=== PATIENT | male | born 1970 | race Caucasian/White ===

== ENCOUNTER 2022-01-21 14:06 | Inpatient (IN) | payer OTHER, MEDICAID ==
[~2022-01-21] VITALS: Ht 167.6 cm; Wt 77.1 kg
--- NOTE | 2022-01-21 14:06 | NUR ---
TRAMAINE ALS TO ER BED 7
[2022-01-21 14:08] VITALS: BP 123/74
--- NOTE | 2022-01-21 14:30 | NUR ---
51YO MALE PT BIBA FROM HOME DUE TO SYNCOPE . FAMILY STATES "HEARING A FALL" AND FINDING PT ON BATHROOM FLOOR, NOTE PT WAS NON VERBAL FOR ABOUT 15MIN. PER FAMILY , PT STATED "NOT FEELING WELL" YESTERDAY AFTERNON AND DIDNT WANT TO GET OUT OF BED. 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 FAMILY EXPRESSED CONCERN DUE TO FAMILY HX OF WIDOWMAKER CORNEJO. UPON ARRIVAL- PT AAOX3 , MILD CONFUSION W/ DELAYED CLEAR SPEECH. PT W/ HX OF STROKE(2017), MILD MEMORY LOSS . 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 DENIES N/V/D, CHEST PAIN, SOB , FEVER OR CHILLS. +FAMILY SICK AT HOME. HOB RAISED, BED AT LOWEST POSITION, BED RAILS UPX2. ON TUBING TESTER. HX: HLD, STROKE(2017), HYPERTHYROIDISM. NKA
[2022-01-21] MEDS ORDERED: DEXTROSE ORAL 15 GM TUBE PO ONE (14:40)
[2022-01-21] MEDS ORDERED: NACL 0.9% 1,000 ML IV SCH (14:40)
--- NOTE | 2022-01-21 14:45 | NUR ---
PT TAKEN TO CT VIA MELANIE
--- NOTE | 2022-01-21 14:55 | NUR ---
PT BROUGHT BACK FROM CT
[2022-01-21] MEDS ORDERED: levETIRAcetam 1,000 MG in NACL 0.9% 100 ML IV ONE (15:00)
[2022-01-21] MEDS ORDERED: LORazepam 2 MG/ML VIAL IVP ONE (15:00)
[2022-01-21] MEDS ORDERED: INTUBATION KIT MC ONE ×2 (15:01→15:05)
[2022-01-21] MEDS ORDERED: PROPOFOL 200 MG/20 ML VIAL IV ONE ×2 (15:04→15:05)
[2022-01-21] MEDS ORDERED: ROCURONIUM 50 MG/5 ML VIAL IV ONE (15:05)
[2022-01-21 15:45] LABS: BASOPHILS % (AUTO) 0.4 % (0.0-2.0); EOSINOPHILS # (AUTO) 0.1 K/uL (0-0.4); EOSINOPHILS % (AUTO) 1.5 % (0.0-4.0); HEMATOCRIT 40.5 % (36-52); HEMOGLOBIN 14.3 g/dL (12.0-18.0); LYMPHOCYTES # (AUTO) 0.8 K/uL (2.0-11.5); LYMPHOCYTES % (AUTO) 9.6 % (20.5-51.1); MEAN CORPUSCULAR HEMOGLOBIN 31 pg (27-31); MEAN CORPUSCULAR HGB CONC 35 g/dL (33-37); MEAN CORPUSCULAR VOLUME 87.3 fL (80-94); MONOCYTES # (AUTO) 1.2 K/uL (0.8-1.0); MONOCYTES % (AUTO) 13.5 % (1.7-9.3); NEUTROPHILS # (AUTO) 6.4 K/uL (1.8-7.7); PLATELET COUNT (AUTO) 156 K/uL (140-450); RED BLOOD CELL COUNT(AUTO) 4.64 MIL/uL (4.20-6.10); RED CELL DISTRIBUTION WIDTH 12.9 % (11.6-13.7); WHITE BLOOD COUNT (AUTO) 8.5 K/uL (4.8-10.8)
[2022-01-21 16:07] LABS: PROTHROMBIN TIME 11.6 secs (10.8-13.4)
[2022-01-21 16:21] LABS: ALBUMIN 3.3 g/dL (3.4-5.0); ANION GAP 14.6 (8-16); ASPARTATE AMINOTRANSFERASE 28 U/L (15-37); CARBON DIOXIDE 27.5 mmol/L (21-32); CHLORIDE 96 mmol/L (98-107); CREATININE 1.5 mg/dL (0.6-1.3); GFR ARICAN-AMERICAN 64 mL/min (>90); GLUCOSE 98 mg/dL (74-106); POTASSIUM 3.1 mmol/L (3.5-5.1); SODIUM SERUM 135 mmol/L (136-145); TOTAL BILIRUBIN 1.3 mg/dL (0.0-1.0); UREA NITROGEN, BLOOD 11 mg/dL (7-18)
[2022-01-21 16:22] LABS: APPEARANCE,URINE CLEAR (CLEAR); BILIRUBIN,URINE NEGATIVE (NEGATIVE); BLOOD, URINE 2+ (NEGATIVE); COLOR,URINE YELLOW (YELLOW); LEUKOCYTE ESTERASE ,URINE NEGATIVE (NEGATIVE); NITRITE, URINE NEGATIVE (NEGATIVE); UGLUCOSE NEGATIVE (NEGATIVE)
--- NOTE | 2022-01-21 16:33 | NUR ---
mom updated on pt status
[2022-01-21] MEDS ORDERED: NACL 0.9% 1,000 ML IV ONE ×2 (16:40→16:45)
[2022-01-21] MEDS ORDERED: ACETAMINOPHEN EXTRA STRENGTH 500 MG TAB PO ONE (16:55)
[2022-01-21] MEDS ORDERED: cefTRIAXone 1,000 MG VIAL ONE (17:51)
[2022-01-21] MEDS ORDERED: CLOP75TA55 PO (18:23)
[2022-01-21] MEDS ORDERED: LEVO0.0712 PO (18:23)
[2022-01-21] MEDS ORDERED: LEVE500T18 PO (18:37)
[2022-01-21] MEDS ORDERED: HYDR-3926 PO (18:37)
[2022-01-21] MEDS ORDERED: ASPI-1205 PO (18:37)
[2022-01-21] MEDS ORDERED: ATOR40TA40 PO (18:37)
[2022-01-21] MEDS ORDERED: LISI10TA30 PO (18:37)
[2022-01-21] MEDS ORDERED: HYDR25TA32 PO (18:37)
[2022-01-21] MEDS ORDERED: IBUPROFEN 600 MG TAB PO PRN (19:15)
--- NOTE | 2022-01-21 19:30 | NUR ---
REPORT GIVEN TO JOÃO CLEMENTE. TRANSFER OF CARE AT THIS TIME
[2022-01-21] MEDS ORDERED: DEXAMETHASONE 4 MG/ML VIAL IVP ONE (19:35)
--- NOTE | 2022-01-21 19:48 | NUR ---
PT IS AT REST WITH HOB ELEVATED. ON BEDSIDE MONITOR. A&OX4. SKIN INTACT RESP EVEN AND UNLABORED. PT IS COVID POSITIVE. IS ADMITED TO TELE AND CURRENTLY HOLDING IN ER. PENDING BED ASSIG. PT DENIES CP SOB OR PAIN
--- NOTE | 2022-01-21 21:42 | NUR ---
PT IS RESTING AT THIS TIME. DENIES PAIN CP OR SOB. RESP EVEN AND UNLABORED. ON BEDSIDE QC SCIENTIST.
--- NOTE | 2022-01-22 01:34 | NUR ---
PT IS ASLEEP. RESP EVEN AND UNLABORED. PT IS ON BEDSIDE MONITOR. SPO2 98% RA. HOB ELEVATED. BED AT LOWEST POSITION SIDE RAILS UP X2
--- NOTE | 2022-01-22 07:26 | NUR ---
TEXTED DR JRAA FOR DIET ORDERS.
--- NOTE | 2022-01-22 08:53 | NUR ---
SPOKE WITH THE PT MOTHER RITA [phone]. CALL HER WITH ANY NEW UPDATES.
--- NOTE | 2022-01-22 09:51 | NUR ---
PT IS HAVING BREAKFAST.
--- NOTE | 2022-01-22 10:53 | NUR ---
PATIENT TRNASPORTED TO BED 1 VIA [facility].
--- NOTE | 2022-01-22 14:47 | NUR ---
NOTIFIED DR JARA NO ADMIT ORDERS PLACED SINCE ADMISSION. STATED SHE WILL PLACE ORDERS.
[2022-01-22] MEDS ORDERED: ONDANSETRON 4 MG/2 ML VIAL IVP PRN (14:50)
[2022-01-22] MEDS ORDERED: ACETAMINOPHEN 325 MG TAB PO PRN (14:50)
[2022-01-22] MEDS ORDERED: HYDROcodone/APAP 7.5/325 MG 1 TAB PO PRN (14:50)
[2022-01-22] MEDS ORDERED: MECLIZINE 25 MG TAB PO PRN (14:55)
[2022-01-22] MEDS ORDERED: POTASSIUM CHLORIDE 10 MEQ TABER PO PRN (14:55)
[2022-01-22] MEDS ORDERED: MAG SULF 2000 MG/WATER PREMIX 50 ML IV PRN (14:55)
[2022-01-22] MEDS: NACL 0.9% 1,000 ML IV SCH (15:21)
[2022-01-22 16:11] LABS: ANION GAP 14.3 (8-16); CARBON DIOXIDE 25.2 mmol/L (21-32); CREATININE 1.2 mg/dL (0.6-1.3); POTASSIUM 3.5 mmol/L (3.5-5.1)
[2022-01-22 16:15] LABS: AMYLASE 28 U/L (25-115); HDL CHOLESTEROL 41 mg/dL (40-60); LDL (CALC) 31 mg/dL (60-100); LIPASE 149 U/L (73-393); MAGNESIUM 1.5 mg/dL (1.8-2.4); PHOSPHORUS 1.2 mg/dL (2.5-4.9); THYROID STIMULATING HORMONE < 0.01 uIU/mL (0.34-3.74); TRIGLYCERIDES 57 mg/dL (30-150)
[2022-01-22] MEDS ORDERED: cefTRIAXone 1,000 MG VIAL ONE (17:51)
[2022-01-22 19:11] LABS: BASOPHILS % (AUTO) 0.1 % (0.0-2.0); HEMATOCRIT 38.3 % (36-52); HEMOGLOBIN 13.2 g/dL (12.0-18.0); LYMPHOCYTES # (AUTO) 0.5 K/uL (2.0-11.5); MEAN CORPUSCULAR HEMOGLOBIN 30 pg (27-31); MEAN CORPUSCULAR HGB CONC 35 g/dL (33-37); MEAN CORPUSCULAR VOLUME 87.9 fL (80-94); MONOCYTES # (AUTO) 0.7 K/uL (0.8-1.0); MONOCYTES % (AUTO) 3.9 % (1.7-9.3); NEUTROPHILS # (AUTO) 16.1 K/uL (1.8-7.7); PLATELET COUNT (AUTO) 160 K/uL (140-450); RED BLOOD CELL COUNT(AUTO) 4.36 MIL/uL (4.20-6.10); RED CELL DISTRIBUTION WIDTH 12.8 % (11.6-13.7); WHITE BLOOD COUNT (AUTO) 17.3 K/uL (4.8-10.8)
--- NOTE | 2022-01-22 19:21 | NUR ---
GAVE REPORT TO MICHAEL ABDALLA.
--- NOTE | 2022-01-22 19:25 | NUR ---
Report given to LIANNE Hansen and endorse care of patient.
[2022-01-22] MEDS ORDERED: NON-FORMULARY ITEM (Atorvastatin Calcium 1 TAB) PO SCH (21:00)
[2022-01-22] MEDS: ATORVASTATIN 20 MG TAB PO SCH (21:16)
[2022-01-22] MEDS: levETIRAcetam 500 MG TAB PO SCH (21:17)
[2022-01-22] MEDS: DOCUSATE SODIUM 100 MG GELCAP PO SCH (21:17)
--- NOTE | 2022-01-22 21:47 | NUR ---
Patient will be admitted to care of Dr. Perrin. Admited to TELE. Will go to room 117. Belongings list completed. Report to LIANNE Peralta.
[2022-01-22 21:50] VITALS: BP 136/87
--- NOTE | 2022-01-22 21:50 | NUR ---
RECEIVED REPORT FROM ER NURSE VIKASH. PATIENT IS A&O X4. PATIENT IS ON ROOM AIR, BREATHING IS NORMAL WITH SYMMETRICAL RISE AND FALL OF CHEST. IV IS A 20G LAC, AND A 20G RAC; RUNNING NS 100 IN LAC. PATIENT IS ABLE TO AMBULATE INDEPENDENTLY. PATIENT'S VITALS ARE: BP 136/87, HR 78, O2 98, RR 18, TEMP 96.7. PATIENT STATES NO ISSUES USING THE RESTROOM. BED IS IN LOWEST POSITION, WHEELS LOCKED, CALL LIGHT IN PLACE. WILL CONTINUE TO OBSERVE PATIENT.
--- NOTE | 2022-01-22 22:00 | NUR ---
PT TAKEN TO TELE ROOM 117. ENDORSED TO LIANNE MONTEMAYOR.
[2022-01-22] MEDS: HYDROCORTISONE 10 MG TAB PO SCH (23:19)
[2022-01-23] VITALS: BP 119/76
--- NOTE | 2022-01-23 01:00 | NUR ---
HAD OBTAINED 0000 VITALS FROM PATIENT. VITALS WERE: BP 119/76, HR 76, O2 98, TEMP 96.7. PATIENT IS LYING SUPINE IN BED TRYING TO GO TO SLEEP. BREATHING IS NORMAL WITH SYMMETRICAL RISE AND FALL OF CHEST. WILL CONTINUE TO OBSERVE PATIENT. DR BECERRA CALLED TO CHECK UP ON THE PATIENT AT 0050. PHYSICIAN ASKED IF PATIENT WAS ALERT, IF HE COULD USE THE BATHROOM, IF HE HAD ANY FEVER, HOW HIS O2 WAS, AND IF HE HAD ANY IV. I TOLD THE DOCTOR THE PATIENT WAS A&O X4; HE WAS FULLY AMBULATORY, WALKING AROUND THE ROOM AND ABLE TO USE THE BATHROOM; THERE WAS NO FEVER; O2 WAS 98 ON ROOM AIR; AND IV WAS ON R AND L AC, WITH LAC RUNNING NS AT 100. DOCTOR STATED THAT WAS GOOD, HE'LL CHECK UP ON THE PATIENT IN THE MORNING.
[2022-01-23] MEDS: NACL 0.9% 1,000 ML IV SCH ×3 (01:41→20:58)
[2022-01-23 04:00] VITALS: BP 126/75
--- NOTE | 2022-01-23 04:00 | NUR ---
0400 VITALS WERE: BP 126/75, HR 76, O2 98, RR 18, TEMP 98.3. PATIENT'S BREATHING WAS NORMAL WITH SYMMETRICAL RISE AND FALL OF CHEST. WILL CONTINUE TO OBSERVE PATIENT.
[2022-01-23] MEDS: LEVOTHYROXINE 0.075 MG TAB PO SCH (05:45)
--- NOTE | 2022-01-23 06:30 | NUR ---
ADMINISTERED 0600 THYROID MEDICATION TO PATIENT. PATIENT TOLERATED WELL. ALSO HUNG NEW IV BAG FOR PATIENT. IV RUNNING NS AT 100. PATIENT WAS WONDERING AROUND THE ROOM, ASKED PATIENT IF EVERYTHING IS OKAY. PATIENT STATED YES, BUT KEPT PLAYING WITH HIS IV. I TOLD HIM HE NEEDED TO LEAVE HIS IV ALONE, HE SAID OKAY, BUT CONTINUED TO PLAY WITH THE CORD BY WRAPPING IT AROUND HIS ARM. PATIENT WAS STILL A&O X4; KNOWING HIS NAME, , WHERE HE WAS, THE DAY, AND WHY HE WAS HERE. WILL CONTINUE TO OBSERVE PATIENT.
--- NOTE | 2022-01-23 07:00 | NUR ---
PATIENT CALLED ME INTO THE ROOM AND STATED THAT HE DIDN'T THINK HIS IV WAS WORKING. I ASKED HIM WHY HE THOUGHT THAT. HE HELD UP THE LINE AND SAID THERE WAS NOTHING IN IT. I SHOWED HIM THE PUMP AND THAT IT WAS OPERATING WITHOUT ANY ISSUES AND EXPLAINED TO HIM THAT THE FLUID IS CLEAR AND FLOWING CONSTANTLY SO HE WOULDN'T BE ABLE TO SEE IT. PATIENT SAID OKAY. PATIENT'S BREATHING WAS NORMAL WITH SYMMETRICAL RISE AND FALL OF CHEST. WILL ENDORSE CARE TO DAY SHIFT.
--- NOTE | 2022-01-23 07:30 | NUR ---
ENDORSED TO DAY SHIFT NURSE SALEEM FOR CONTINUITY OF CARE. PATIENT IS STABLE.
[2022-01-23 08:00] VITALS: BP 132/77
[2022-01-23 08:40] LABS: BASOPHILS % (AUTO) 0.1 % (0.0-2.0); HEMATOCRIT 36.6 % (36-52); HEMOGLOBIN 12.7 g/dL (12.0-18.0); LYMPHOCYTES # (AUTO) 0.7 K/uL (2.0-11.5); LYMPHOCYTES % (AUTO) 2.4 % (20.5-51.1); MEAN CORPUSCULAR HEMOGLOBIN 31 pg (27-31); MEAN CORPUSCULAR HGB CONC 35 g/dL (33-37); MEAN CORPUSCULAR VOLUME 87.7 fL (80-94); MONOCYTES # (AUTO) 1.2 K/uL (0.8-1.0); MONOCYTES % (AUTO) 4.5 % (1.7-9.3); NEUTROPHILS # (AUTO) 25.2 K/uL (1.8-7.7); PLATELET COUNT (AUTO) 155 K/uL (140-450); RED BLOOD CELL COUNT(AUTO) 4.17 MIL/uL (4.20-6.10)
[2022-01-23 08:41] LABS: WHITE BLOOD COUNT (AUTO) 27.1 K/uL (4.8-10.8)
[2022-01-23 08:50] LABS: ANION GAP 12.6 (8-16); CARBON DIOXIDE 26.2 mmol/L (21-32); POTASSIUM 3.8 mmol/L (3.5-5.1)
[2022-01-23 08:58] LABS: MAGNESIUM 1.4 mg/dL (1.8-2.4); PHOSPHORUS 2.8 mg/dL (2.5-4.9)
[2022-01-23] MEDS ORDERED: AZITHROMYCIN 250 MG TAB PO SCH (09:00)
[2022-01-23] MEDS: PANTOPRAZOLE 40 MG INJ VIAL IVP SCH (09:06)
[2022-01-23] MEDS: ASPIRIN 325 MG TAB PO SCH (09:06)
[2022-01-23] MEDS: DOCUSATE SODIUM 100 MG GELCAP PO SCH ×2 (09:07→20:56)
[2022-01-23] MEDS: lisinopriL 10 MG TAB PO SCH (09:19)
[2022-01-23] MEDS: CLOPIDOGREL 75 MG TAB PO SCH (09:21)
[2022-01-23] MEDS: HYDROCORTISONE 10 MG TAB PO SCH ×2 (09:21→20:56)
[2022-01-23] MEDS: hydroCHLOROthiazide 25 MG TAB PO SCH (09:21)
[2022-01-23 12:00] VITALS: BP 120/68
--- NOTE | 2022-01-23 15:02 | NUR ---
PATIENT HAS BEEN SCREENED AND CATEGORIZED LOW NUTRITION RISK. PATIENT WILL BE SEEN WITHIN 7 DAYS OF ADMISSION. 01/28/[address] Addendum: 01/23/22 at [address] REFERRAL RECEIVED NOT APPLICABLE; NO UNINTENTIONAL WEIGHT LOSS REPORTED BY PT. PT WITH A GOOD APPETITE AND PO INTAKE. ADRYAN MANCIA RD
--- NOTE | 2022-01-23 15:07 | NUR ---
DC PLANNING SW MET WITH PT AT BEDSIDE TO COMPLETE ASSESSMENT. PT RESIDES AT HOME WITH HIS MOTHER AT THE ADDRESS LISTED ON FILE. PT IDENTIFIED RITA KOLHER, MOTHER, EMERGENCY CONTACT AND MDM. PT DENIES AD IN PLACE AND DECLINED AD OFFERED BY SW . PT REPORTS LAST MEETING WITH DR. LÓPEZ, THREE MONTHS AGO. PT REPORTS MEETING WITH PCP EVERY THREE MONTHS. PT REPORTS MEDICATION COMPLIANCE AND DENIES BARRIERS IN ACCESS TO MEDICATIONS. PT REPORTS RECEIVING MEDICATION FROM [facility] ON [address] IN [place] , WHEN NEEDED. PT REPORTS BEING INDEPENDENT IN ALL ACTIVITIES AND DENIES USE OF DME. PT COMPLETES ALL ADLS INDEPENDENTLY. PT DENIES MH/SHEA HX. . PT DENIES HX OF DIABETES, DIALYSIS, HH, SNF PLACEMENT. PT REPORTS DC PLAN IS TO RETURN HOME WITH MOTHER PROVIDING TRANSPORTATION WHEN MEDICALLY STABLE. SW INQUIRED ON RESOURCES NEEDED, PT DECLINED. Addendum: 01/23/22 at 1508 by Jennifer RICHARDSON Amended: Links added.
[2022-01-23 16:00] VITALS: BP 130/70
--- NOTE | 2022-01-23 19:56 | NUR ---
GET THE REPORT FROM MORNING NURSE SALEEM, PATIENT IS LYING ON BED, PATIENT IS ALERT ORIENTED X4, ALL FALL PRECAUTION MEASURE ARE IN PLACE, CALL LIGHT IS WITHIN THE REACH, WILL CONTINUE TO MONITOR PATIENT.
[2022-01-23 20:00] VITALS: BP 138/95
[2022-01-23] MEDS: levETIRAcetam 500 MG TAB PO SCH (20:57)
[2022-01-23] MEDS: ATORVASTATIN 20 MG TAB PO SCH (20:57)
--- NOTE | 2022-01-23 21:15 | NUR ---
PATIENT IS LYING ON BED, NO ANY COMPLAIN OF PAIN OR SHORTNESS OF BREATH AT THIS TIME,VITAL SIGN IS WITHIN THE REACH, ALL SCHEDULE MEDICATION IS GIVEN PER DOCTOR ORDER, ALL SEIZURE PRECAUTION ARE IN PLACE, CALL LIGHT IS WITHIN THE REACH, WILL CONTINUE TO MONITOR PATIENT.
[2022-01-24] VITALS: BP 132/90
--- NOTE | 2022-01-24 00:21 | NUR ---
PATIENT IS LYING ON BED, NO ANY COMPLAIN OF PAIN OR SHORTNESS OF BREATH AT THIS TIME, VITAL SIGN IS WITHIN THE NORMAL RANGE, CALL LIGHT IS WITHIN THE REACH, WILL CONTINUE TO MONITOR PATIENT.
[2022-01-24 04:00] VITALS: BP 126/75
--- NOTE | 2022-01-24 04:16 | NUR ---
NO ANY COMPLAIN OF PAIN OR SHORTNESS OF BREATH AT THIS TIME, VITAL SIGN IS WITHIN THE NORMAL RANGE, PATIENT IS LYING ON BED, CALL LIGHT IS WITHIN THE REACH, WILL CONTINUE TO MONITOR PATIENT.
[2022-01-24] MEDS: NACL 0.9% 1,000 ML IV SCH (05:30)
[2022-01-24] MEDS: LEVOTHYROXINE 0.075 MG TAB PO SCH (06:08)
--- NOTE | 2022-01-24 07:03 | NUR ---
GAVE THE REPORT TO THE MORNING NURSE SALEEM FOR CONTINUOS OF CARE, PATIENT IS STABLE.
[2022-01-24 07:26] LABS: EOSINOPHILS % (AUTO) 0.1 % (0.0-4.0); HEMATOCRIT 35.2 % (36-52); HEMOGLOBIN 12.2 g/dL (12.0-18.0); LYMPHOCYTES # (AUTO) 1.2 K/uL (2.0-11.5); LYMPHOCYTES % (AUTO) 7.2 % (20.5-51.1); MEAN CORPUSCULAR HEMOGLOBIN 31 pg (27-31); MEAN CORPUSCULAR HGB CONC 35 g/dL (33-37); MEAN CORPUSCULAR VOLUME 88.6 fL (80-94); MONOCYTES # (AUTO) 0.8 K/uL (0.8-1.0); MONOCYTES % (AUTO) 5.1 % (1.7-9.3); NEUTROPHILS # (AUTO) 14.4 K/uL (1.8-7.7); NEUTROPHILS % (AUTO) 87.6 % (42.2-75.2); PLATELET COUNT (AUTO) 143 K/uL (140-450); RED BLOOD CELL COUNT(AUTO) 3.98 MIL/uL (4.20-6.10); RED CELL DISTRIBUTION WIDTH 13.3 % (11.6-13.7); WHITE BLOOD COUNT (AUTO) 16.4 K/uL (4.8-10.8)
[2022-01-24 07:53] LABS: CARBON DIOXIDE 24.6 mmol/L (21-32); CREATININE 0.8 mg/dL (0.6-1.3); POTASSIUM 3.6 mmol/L (3.5-5.1)
[2022-01-24 08:01] LABS: MAGNESIUM 1.8 mg/dL (1.8-2.4); PHOSPHORUS 2.9 mg/dL (2.5-4.9)
[2022-01-24] MEDS: HYDROCORTISONE 10 MG TAB PO SCH (09:00)
[2022-01-24] MEDS: PANTOPRAZOLE 40 MG INJ VIAL IVP SCH (09:47)
[2022-01-24] MEDS: CLOPIDOGREL 75 MG TAB PO SCH (09:48)
[2022-01-24] MEDS: hydroCHLOROthiazide 25 MG TAB PO SCH (09:48)
[2022-01-24] MEDS: DOCUSATE SODIUM 100 MG GELCAP PO SCH (09:48)
[2022-01-24] MEDS: ASPIRIN 325 MG TAB PO SCH (09:49)
[2022-01-24] MEDS: lisinopriL 10 MG TAB PO SCH (09:49)
[2022-01-24] MEDS ORDERED: CEPH-588 PO (10:33)
== END 2022-01-24 14:10 | disposition home or self-care (01) | DRG 871 ==
LOC: MED 14:06 → MTU 18:00
DX: A41.9 Sepsis, unspecified organism (principal); N17.0 Acute kidney failure with tubular necrosis; U07.1 COVID-19; E44.1 Mild protein-calorie malnutrition; E87.1 Hypo-osmolality and hyponatremia; R65.20 Severe sepsis without septic shock; E87.6 Hypokalemia; H54.61 Unqualified visual loss, right eye, normal vision left eye; I10 Essential (primary) hypertension; G90.9 Disorder of the autonomic nervous system, unspecified; E87.8 Other disorders of electrolyte and fluid balance, not elsewhere classified; E83.42 Hypomagnesemia; Z86.73 Personal history of transient ischemic attack (TIA), and cerebral infarction without residual deficits; Z68.27 Body mass index [BMI] 27.0-27.9, adult
CPT/HCPCS: 36415; 70450; 71045; 80048; 80053; 81001; 82140; 82150; 82550; 82553; 83036; 83605; 83690; 83735; 83880; 84100; 84443; 84484; 85025; 85610; 85730; 87040; 87081; 87086; 93005; 93880; 96361; 96365; 96375; 97163-GP; 99291; C9113; J0696; J1100; J1953; J2060; J2704; J3475; J3490; J7030; J7060; Q0092